=== PATIENT | female | born 1950 | race Caucasian/White ===

== ENCOUNTER → 2024-08-22 | Outpatient (CLI) | payer MEDICARE ==
--- NOTE | 2024-08-23 06:42 | EKG ---
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
== END | disposition home or self-care (01) ==
LOC: LAB 15:15
PROVIDERS: ATTEND Internal Medicine Rheumatology
DX: I49.1 Atrial premature depolarization (principal); Z79.899 Other long term (current) drug therapy
CPT/HCPCS: 93005